=== PATIENT | male | born 1965 | race Caucasian/White ===

== ENCOUNTER → 2017-10-07 | Outpatient (CLI) | payer MEDICARE | END | disposition home or self-care (01) | LOC: RADUSWWP 06:56 | PROVIDERS: ATTEND Family Medicine | DX: I70.219 Atherosclerosis of native arteries of extremities with intermittent claudication, unspecified extremity (principal) | CPT/HCPCS: 93923 ==

== ENCOUNTER → 2021-06-15 | Outpatient (CLI) | payer MEDICARE | END | disposition home or self-care (01) | LOC: RADUSWWP 12:51 | PROVIDERS: ATTEND Family Medicine | DX: R23.4 Changes in skin texture (principal); I73.9 Peripheral vascular disease, unspecified | CPT/HCPCS: 93922 ==

== ENCOUNTER → 2022-05-15 | Outpatient (CLI) | payer MEDICARE ==
[2022-05-15 15:30] LABS: HCT 46.9 % (39.6-50.0); MCV 81.1 fL (80.0-97.0); Mean Platelet Volume 10.5 fL (9.5-12.2); NRBC Per 100 WBC 0 /100 WBCS (0.0-0.0); Platelet Count 197 X 10*3/uL (140-440); RBC 5.78 X 10*6/uL (4.40-5.60); RDW 14.6 % (11.5-14.5); WBC 7.35 X 10*3/uL (4.50-10.00)
[2022-05-15 21:03] LABS: African American GFR (CKD) 115.1 (60.0-200.0); Albumin 4.6 g/dL (3.8-4.9); Albumin/Globulin Ratio 1.58 (1.60-3.17); Anion Gap 14.7 mmol/L (10.00-18.00); BUN/Creat Ratio 8.75 Ratio (12.00-20.00); Blood Urea Nitrogen 7.4 mg/dL (9.0-27.0); Calcium 9.5 mg/dL (8.7-10.3); Carbon Dioxide 27.8 mmol/L (20.0-27.5); Globulin 2.9 g/dL (1.6-3.3); Non-African American GFR(CKD) 99.3 (60.0-200.0); Potassium 4.6 mmol/L (3.5-5.5); T4, Free (Free Thyroxine) 1.12 ng/dL (0.800-1.800); Total Bilirubin 0.4 mg/dL (0.30-1.20); Total Protein 7.5 g/dL (6.2-8.2)
== END | disposition home or self-care (01) ==
LOC: LABWHC1 10:51
PROVIDERS: ATTEND Physician Assistant
DX: G62.9 Polyneuropathy, unspecified (principal)
CPT/HCPCS: 36415; 80053; 82306; 82607; 84207; 84439; 84443; 84481; 85027

== ENCOUNTER → 2023-05-16 | Outpatient (CLI) | payer MEDICARE ==
--- NOTE | 2023-05-16 12:49 | CT ---
EXAMINATION TYPE: CT heart w calcium score DATE OF EXAM: 05/16/2023 COMPARISON: None HISTORY: Screening for cardiovascular disorder. 213.9 CT DLP: 370.7 mGycm Automated exposure control for dose reduction was used. CT CALCIUM SCORING Coronary calcium is a marker for plaque (fatty deposits) in a blood vessel or atherosclerosis (harden ing of the arteries). The presence and amount of calcium detected in a coronary artery by the CT sca n, indicates the presence and amount of atherosclerotic plaque. These calcium deposits appear years before the development of heart disease symptoms such as chest pain and shortness of breath. A calcium score is computed for each of the coronary arteries based upon the volume and density of th e calcium deposits. This can be referred to as your calcified plaque burden. It does not correspond directly to the percentage of narrowing in the artery but does correlate with the severity of the un derlying coronary atherosclerosis. PROCEDURE TECHNIQUE - Prospective Gating was used. Slice thickness: 3mm. Density threshold (HU): 130, Pixel threshold: 3, Algorithm: discrete. RESULTS Region: LM Calcium Score ([place]): 0 Volume (mm3): 0 Mass (g): 0 Region: RCA Calcium Score ([place]): 0 Volume (mm3): 0 Mass (g): 0 Region: LAD Calcium Score ([place]): 0 Volume (mm3): 0 Mass (g): 0 Region: CX Calcium Score ([place]): 0 Volume (mm3): 0 Mass (g): 0 Region: PDA Calcium Score ([place]): 0 Volume (mm3): 0 Mass (g): 0 Total: Calcium Score ([place]): 0 Volume (mm3): 0 Mass (g): 0 TOTAL CALCIUM SCORE: 0 IMPRESSION: Calcium Score: 0 Implication: No identifiable plaque. Risk of Coronary Artery Disease: Very low, generally less than 5%. Impression: 1. No identifiable plaque present. 2. Incidental note made of a small hiatal hernia. CALCIUM SCORE IMPLICATION RISK OF C ORONARY ARTERY DISEASE 0 No identifiable plaque Very low, generally less than 5% 1-10 Minimal identifiable plaque Very unlikely, less than 10% 11-100 Definite, at least mild atherosclerotic plaque Mild or m inimal coronary narrowings likely 101-400 Definite, at least moderate atherosclerotic plaque Mild coronary ar zoya disease highly likely, significant narrowing possible 401 or Higher Extensive atherosclerotic plaque High lik elihood of at least one significant coronary narrowing
== END | disposition home or self-care (01) ==
LOC: RADCTMAIN 10:56
PROVIDERS: ATTEND Family Medicine
DX: Z91.89 Other specified personal risk factors, not elsewhere classified (principal); I25.10 Atherosclerotic heart disease of native coronary artery without angina pectoris; K44.9 Diaphragmatic hernia without obstruction or gangrene; Z13.6 Encounter for screening for cardiovascular disorders
CPT/HCPCS: 75571

== ENCOUNTER → 2023-07-29 | Outpatient (CLI) | payer MEDICARE ==
--- NOTE | 2023-07-29 11:11 | US ---
LOWER EXTREMITY VENOUS INSUFFICIENCY CLINICAL INDICATION: Male, 58 years old with history of I87.311 CHRONIC VENOUS HYPERTENSION (IDIOPATH IC) W; Wound right ankle. Discoloration left lower leg SIDE PERFORMED: bilateral 1) Color flow is present and patency is documented in the following vessels. No DVT or SVT is noted . Common Femoral Vein Deep Femoral Vein Femoral Vein Popliteal Vein Proximal Calf Veins Greater Saph Vein Upper Small Saph Vein 2) There is venous reflux noted at the following venous levels: right CFV IMPRESSION: Diffuse insufficiency of the right common femoral vein.
--- NOTE | 2023-07-29 11:44 | US ---
EXAMINATION TYPE: US arterial LE single level DATE OF EXAM: 07/29/2023 10:38 AM CLINICAL INDICATION: Male, 58 years old with history of I87.311 CHRONIC VENOUS HYPERTENSION (IDIOPATH IC) W; Wound right ankle for 2 months. Discoloration left lower leg near ankle History of: Smoker: previous Hypertension: yes Diabetic: no Hyperlipidemia: yes TIA/CVA: no Previous Vascular Surgery: no LA: no Vascular Ulcers: yes Claudication: no Gangrene: no Doppler Waveforms: Right: 1.3 Left: 1.2 Right Brachial Pressure: 128 Left Brachial Pressure: 121 Ankle-Brachial Indices: Right: 1.32 Left: 1.24 (Vessel hardening > 1.4; Normal 0.9 - 1.4, Moderate 0.7 - 0.9, Severe 0.5-0.7) Toe Brachial Indices: Right: 0.83 Left: 1.0 IMPRESSION: Normal ankle-brachial indices bilaterally.
== END | disposition home or self-care (01) ==
LOC: RADUSWWP 09:29
PROVIDERS: ATTEND Family Medicine
DX: I87.2 Venous insufficiency (chronic) (peripheral) (principal); I87.311 Chronic venous hypertension (idiopathic) with ulcer of right lower extremity; L97.312 Non-pressure chronic ulcer of right ankle with fat layer exposed; E78.5 Hyperlipidemia, unspecified; I10 Essential (primary) hypertension
CPT/HCPCS: 93922; 93970

== ENCOUNTER → 2024-04-01 | Outpatient (CLI) | payer MEDICARE ==
--- NOTE | 2024-04-01 09:28 | US ---
EXAMINATION TYPE: US carotid duplex BILAT DATE OF EXAM: 04/01/2024 COMPARISON: NONE CLINICAL INDICATION: Male, 58 years old with history of Z91.89 PERSONAL RISK FACTORS; Additional History: .... TECHNIQUE: Grayscale, color Doppler and spectral Doppler evaluation of the bilateral carotid systems and vertebral arteries. Indirect Doppler criteria was utilized. FINDINGS: EXAM MEASUREMENTS: RIGHT: Peak Systolic Velocity (PSV) cm/sec ----- Right CCA: 114.2 ----- Right ICA: 135.0 ----- Right ECA: 143.1 ICA/CCA ratio: 1.2 RIGHT: End Diastole cm/sec ----- Right CCA: 22.7 ----- Right ICA: 30.3 ----- Right ECA: 23.6 LEFT: Peak Systolic Velocity (PSV) cm/sec ----- Left CCA: 106.5 ----- Left ICA: 85.0 ----- Left ECA: 102.7 ICA/CCA ratio: 0.8 LEFT: End Diastole cm/sec ----- Left CCA: 28.8 ----- Left ICA: 22.0 ----- Left ECA: 23.6 VERTEBRALS (direction of flow): Right Vertebral: Antegrade Left Vertebral: Antegrade Rhythm: Normal STORE HOST NOTES: Slightly elevated velocities at Rt Mid ICA & Rt ECA No significant stenosis or daily que seen bilaterally Color Doppler imaging shows patency with blood flow throughout the carotid artery. Spectral waveforms are within normal limits. IMPRESSION: Right: 50-69% stenosis of the carotid bifurcation by peak systolic velocity. Left: No hemodynamically significant stenosis. Criteria for Assigning % of Stenosis / Diameter reduction (Estimation based on the indirect measurements of the internal carotid artery velocities (ICA PSV). 1. Normal (no stenosis)=ICA PSV < 125 cm/s: ratio < 2.0: ICA EDV<40 cm/s. 2. Less than 50% stenosis=ICA PSV < 125 cm/s: ratio < 2.0: ICA EDV<40 cm/s. 3. 50 to 69% stenosis=ICA PSV of 125 to 230 cm/s: ration 2.0 ? 4.0: ICA EDV 40-100 cm/s. 4. Greater than 70% stenosis to near occlusion= ICA PSV > 230 cm/s: ratio > 4.0: ICA EDV > 100 cm/s. 5. Near occlusion= ICA PSV velocities may be low or undetectable: variable ratio and ICA EDV. 6. Total occlusion=unable to detect flow. [facility], , 04/01/2024 9:25 AM
== END | disposition home or self-care (01) ==
LOC: RADUSWWP 07:21
PROVIDERS: ATTEND Family Medicine
DX: I65.23 Occlusion and stenosis of bilateral carotid arteries (principal); R06.02 Shortness of breath; Z91.89 Other specified personal risk factors, not elsewhere classified
CPT/HCPCS: 93880

== ENCOUNTER → 2024-09-21 | Outpatient (CLI) | payer MEDICARE ==
[~2024-09-21] MED LIST: REGADENOSON 0.4 MG/5 ML SYRINGE IV PRN
--- NOTE | 2024-09-21 13:33 | CA ---
Lexiscan Nuclear Stress Test Report Name: Jason Alcantara Exam Date: 09/21/2024 11:03 Exam Location: [place] Stress Ht (in): 72 Wt (lb): 274 BSA: 2.44 Ordering Phys: Jose Manuel Valladares MD Referring Phys: Maggi King [facility] Technologist: RAW Age: 59 Gender: M : 1965 Procedure CPT: Indications: R06.09 Other forms of dyspnea ICD-10 Codes: Patient History: Shortness of breath, hypertension and fanily history of heart disease Medications: Meds past 24 hrs: Pretest Chest Pain: STRESS TEST Lexiscan Protocol Exercise Duration (min:sec): 02:[address] Depressions (mm): Angina Score: Ly Score: Resting HR (bpm): 63 Peak HR (bpm): 80 Resting BP (mmHg): 118 / 59 Peak BP (mmHg): 124 / 58 MPHR: 163 Target HR: 139 % MPHR: 49 METS: 1.0 Total Dose: Peak Dose: Atropine: Double Product: 9920 BP Response: Stress Termination: INFUSION COMPLETE Stress Symptoms: NO SYMPTOMS Stress Summary: ECG ANALYSIS Resting ECG: Sinus rhythm. Normal conduction. No arrhythmias. Normal repolarization. Stress ECG: No ECG changes from baseline with Lexiscan infusion. CONCLUSIONS No ECG evidence of ischemia with Lexiscan infusion. Nuclear test results to follow. Dr. Zaida Zarate MD (Electronically Signed) Final Date: 21 September 2024 13:33
--- NOTE | 2024-09-21 13:42 | NM ---
EXAMINATION TYPE: NM stress lexiscan cardiolite DATE OF EXAM: 09/21/2024 COMPARISON: CT calcium score May 16, 2023 CLINICAL INDICATION: Male, 59 years old with history of R06.09 OTHER FORMS OF DYSPNEA; history of hyp ertension and hypercholesteremia TECHNIQUE: After the intravenous administration of 9.9 mCi Tc 99m Sestamibi - Cardiolite resting SPE CT images acquired 60 minutes post injection. The patient received 0.4mg Lexiscan, 23 mCi Tc 99m Sestamibi - Stress images obtained 30 minutes post injection FINDINGS: Review of stress and rest SPECT images demonstrates suspicious area involving the anterolateral wall on stress images versus rest images worrisome for acute ischemia. Gated analysis shows an estimated left ventricular ejection fraction of 60 %. IMPRESSION: Possible acute ischemia anterolateral wall left ventricle . Advise direct catheter angiog stuart follow-up to further evaluate. [facility], , 09/21/2024 1:39 PM
== END | disposition home or self-care (01) ==
LOC: RADNMMAIN 08:28
PROVIDERS: ATTEND Family Medicine
DX: R06.09 Other forms of dyspnea (principal); E78.00 Pure hypercholesterolemia, unspecified; I10 Essential (primary) hypertension
CPT/HCPCS: 93017; 78452; A9500; J2785

== ENCOUNTER → 2024-11-12 | Day surgery (SDC) | payer MEDICARE ==
[~2024-11-12] MED LIST changes: +ALPRAZolam 0.25 MG TAB PO PRN; +ALPRAZolam 0.5 MG TAB PO PRN; +ASPIRIN 325 MG TAB PO ONE; +NITROGLYCERIN SL TABS 0.4 MG TAB SUBLINGUAL PRN; -REGADENOSON 0.4 MG/5 ML SYRINGE IV PRN; +RX INFO: IV CONTRAST WAS GIVEN 1 EACH MISC MISCELLANE PRN
[2024-11-12] MEDS: SODIUM CHLORIDE 0.9% 1,000 ML in EMPTY BAG 1 BAG IV SCH (07:55)
[2024-11-12] MEDS: IV FLUID CONTINUATION 1,000 ML IV ONE (07:55)
[2024-11-12 07:56] LABS: Basophils # (A) 0.03 10*3/uL (0.00-0.10); Basophils % (A) 0.4 %; Eosinophils # (A) 0.23 10*3/uL (0.04-0.35); Eosinophils % (A) 2.9 %; HCT 38.7 % (39.6-50.0); HGB 12.6 g/dL (13.0-17.0); Lymphocytes # (A) 1.86 10*3/uL (0.90-5.00); Lymphocytes % (A) 23.1 %; MCH 24.0 pg (27.0-32.0); MCHC 32.6 g/dL (32.0-37.0); MCV 73.9 fL (80.0-97.0); Monocytes # (A) 0.93 10*3/uL (0.20-1.00); Monocytes % (A) 11.6 %; Neutrophils # (A) 4.97 10*3/uL (1.80-7.70); Neutrophils % (A) 61.8 %; Platelet Count 187 10*3/uL (140-440); RBC 5.24 10*6/uL (4.40-5.60); RDW 15.8 % (11.5-14.5); WBC 8.04 10*3/uL (4.50-10.00)
[2024-11-12 08:02] VITALS: TEMP 98
[2024-11-12 08:08] LABS: African American GFR (CKD) >90 (>60 ml/min/1.73 sqM); Anion Gap 11 mmol/L; Blood Urea Nitrogen 9 mg/dL (9-20); Calcium 9.3 mg/dL (8.4-10.2); Carbon Dioxide 28 mmol/L (22-30); Chloride 100 mmol/L (98-107); Glucose 103 mg/dL (74-99); Non-African American GFR(CKD) >90 (>60 ml/min/1.73 sqM); Potassium 4.1 mmol/L (3.5-5.1); Sodium 139 mmol/L (137-145)
[2024-11-12] MEDS: MIDAZOLAM 2 MG/2 ML VIAL IVP ONE (09:30)
[2024-11-12] MEDS: fentaNYL (PF) 50 MCG/ML 2 ML AMP IVP ONE (09:30)
[2024-11-12] MEDS: LIDOCAINE 1% INJ 10MG/ML (20 ML MDV) SQ ONE (09:36)
[2024-11-12] MEDS: IOPAMIDOL-370 100ML BTL INJ ONE (09:57)
[2024-11-12] MEDS: HEPARIN SODIUM,PORCINE 10,000 UNIT in SODIUM CHLORIDE 0.9% 1,000 ML IRRIGATION PRN (09:57)
[2024-11-12] MEDS: HEPARIN SODIUM,PORCINE (1 ML) 2,500 UNIT in SODIUM CHLORIDE 0.9% 250 ML IRRIGATION PRN (09:57)
[2024-11-12 12:48] VITALS: RESP 16
[2024-11-12 12:50] VITALS: BP 106/65; PULSE 68
--- NOTE | 2024-11-12 20:17 | CC ---
CARDIAC CATHETERIZATION REPORT INDICATION: Shortness of breath with abnormal stress test. PROCEDURE NOTE: After obtaining informed consent, left heart catheterization and coronary angiogram were performed via the right femoral artery using standard Yared catheters. The patient tolerated the procedure well without any immediate complications. The femoral angiogram was performed, and Angio-Seal was deployed for hemostasis. Total sedation time was 25 minutes. The patient did not want is to right radial catheterization, reveals he has left-sided weakness. I tried to perform cardiac catheterization from the left wrist from the left radial artery, however, his ability to move the left arm is very restricted. Hence, I decided to proceed with the femoral catheterization. FINDINGS: 1. Hemodynamics: Left ventricular end-diastolic pressure is 12 mm. There is no significant gradient across the aortic valve. 2. Left Ventriculogram: Left ventriculogram is not performed. 3. Angiographic Data: a.Right Coronary Artery: Right coronary artery is a large dominant vessel and is free of stenosis. b.Left main coronary artery appears normal, divides into left anterior descending coronary artery and circumflex coronary artery. LAD and its branches circumflex coronary artery and its branches are free of significant stenosis. CONCLUSIONS: 1. Normal coronary arteries. 2. False-positive stress test. PLAN: The patient's management is going to be in the form of risk factor modification, optimal medical therapy. MMODL / IJN: [id number] /
== END ==
LOC: CATHCVL 06:57
PROVIDERS: ATTEND Internal Medicine Cardiovascular Disease
DX: R94.39 Abnormal result of other cardiovascular function study (principal); I10 Essential (primary) hypertension; E11.9 Type 2 diabetes mellitus without complications; E78.2 Mixed hyperlipidemia; I65.23 Occlusion and stenosis of bilateral carotid arteries; R06.02 Shortness of breath; Z79.82 Long term (current) use of aspirin; Z79.85 Long-term (current) use of injectable non-insulin antidiabetic drugs; Z79.899 Other long term (current) drug therapy; Z82.49 Family history of ischemic heart disease and other diseases of the circulatory system
CPT/HCPCS: 80048; 85025; 93458